=== PATIENT | male | born 1970 | race Hispanic/Latino ===

== ENCOUNTER → 2024-11-18 | Day surgery (SDC) | payer BC, OTHER ==
[~2024-11-18] MED LIST: EPHEDRINE SULFATE INJ 50 MG/ML VIAL ONE; FENTANYL CITRATE/PF 100MCG/2 ML INJ ONE; LIDOCAINE HCL 2% LOCAL INJ 5 ML SDV VIAL INJ ONE; MIDAZOLAM HCL 2 MG/2 ML VIAL ONE; PROPOFOL IV EMULSION 10 MG/ML 20 ML VIAL ONE
[2024-11-18] MEDS: LACTATED RINGER'S 1,000 ML ONE (14:29)
[2024-11-18 15:52] VITALS: TEMP 98.1
[2024-11-18 16:20] VITALS: BP 130/72; PULSE 67; RESP 16; O2SAT 100
== END | disposition home or self-care (01) ==
LOC: OR 13:48
PROVIDERS: ATTEND Internal Medicine Gastroenterology
DX: K29.70 Gastritis, unspecified, without bleeding (principal); K31.7 Polyp of stomach and duodenum; K62.5 Hemorrhage of anus and rectum; K64.1 Second degree hemorrhoids; R93.2 Abnormal findings on diagnostic imaging of liver and biliary tract
CPT/HCPCS: 43239; 45378; 93005; J2003; J2250; J2704; J3010; J7121